=== PATIENT | male | born 1965 | race Caucasian/White ===

== ENCOUNTER 2025-02-20 11:48 | Outpatient (CLI) | payer BC, SELFPAY ==
--- NOTE | ~2025-02-20 | XR_ITS ---
Cervical Spine: AP, lateral, open-mouth views Clinical History: Pain Findings: There is reversal normal cervical lordosis. There is 5 mm anterolisthesis of C2 over C3. Th ere is 4 mm anterolisthesis of C3 over C4. There is severe degenerative disc narrowing from C3 throug h C7. There is moderate to advanced facet arthropathy. Probable fusion of the C3 and C4 facet joints. Pre-vertebral soft tissues are unremarkable. Impression: Severe degenerative spondylosis. 5 mm anterolisthesis of C2 over C3. 4 mm anterolisthesis of C3 over C4. Reviewed, dictated and finalized at location . Impression: Severe degenerative spondylosis. 5 mm anterolisthesis of C2 over C3. 4 mm anterolisthesis of C3 over C4.
== END 2025-02-20 11:49 | disposition home or self-care (01) ==
LOC: MICIMG 11:52
PROVIDERS: PCP Pain Medicine Pain Medicine; Visit Provider Pain Medicine Pain Medicine
DX: M47.812 Spondylosis without myelopathy or radiculopathy, cervical region (principal); M43.12 Spondylolisthesis, cervical region
CPT/HCPCS: 72040